=== PATIENT | male | born 1985 | race Caucasian/White ===

== ENCOUNTER 2017-04-23 10:45 | Emergency (ER) | payer SELFPAY ==
--- NOTE | 2017-04-23 10:55 | ED Physician Documentation ---
General Adult - HISTORIAN Historian: patient - HPI Stated Complaint: pain on top of left foot after dropping object on foot yesterday Chief Complaint: Lower Extremity Problem Onset: days ago (1) Timing: still present Severity: moderate Further Comments: yes (States yesterday at work he did drop a heavy item on his left foot and he has had increasing pain and swelling since. He has tried OTC meds with mild relief. He is able to bear weight on the foot but states it is painful .) Last known Well Code/Unknown Code: Unknown - ROS CONST: no problems MS/SKIN/LYMPH: none - PAST HX Past History: none Other History: none Surgeries/Procedures: other (right hand ) Immunizations: UTD Allergies/Adverse Reactions: Allergies Allergy/AdvReac Type Severity Reaction Status Date / Time No Known Allergies Allergy Verified 04/23/17 10:57 Home Medications: Ambulatory Orders Medication Instructions Recorded NK [NK] 04/23/17 - SOCIAL HX Smoking History: cigarettes Alcohol Use: rarely Drug Use: none - FAMILY HX Family History: No - VITAL SIGNS Vital Signs: Vital Signs Temp Pulse Resp BP Pulse Ox 151/87 04/23/17 10:46 - REVIEWED ASSESSMENTS Nursing Assessment Reviewed: Yes Vitals Reviewed: Yes ED Results Lab/Radiology - Radiology Radiology Impressions: Left foot, 3 views. History: LEFT FOOT, PAIN IN LEFT FOOT AFTER DROPPING CONCRETE BLOCK ON FOOT YESTERDAY Findings: The osseous structures are intact without acute fracture. The joint space and alignment are normal. There is no soft tissue swelling. Plantar and dorsal calcaneal enthesophytes present. Impression: 1. No acute osseous abnormality. Electronically signed on Apr 23, 2017 11:22:29 AM CDT by: Carlos Skinner General Adult Physical Exam - PHYSICAL EXAM GENERAL APPEARANCE: no distress EENT: eye inspection normal RESPIRATORY: no resp distress, chest non-tender, wheezes CVS: reg rate & rhythm, heart sounds normal, equal pulses, no murmur SKIN: warm/dry EXTREMITIES: other (left foot with swelling . Tenderness to touch (top of foot) pulses + cap refill + sensation +) NEURO: oriented X3 Discharge Clincal Impression: Foot pain, left Referrals: Anjelica Church FNP [Primary Care Provider] - 2 Days Additional Instructions: 1. Ice to area 2. Elevate area 3. EDUARDO wrap 4. Tylenol or Ibuprofen for pain as needed 5. follow up with PCP or ER for any change in concerns Condition: Stable Disposition: 01 HOME, SELF-CARE Decision to Admit: NO Date of Decison to Admit: 04/23/17 Decision Time: 11:24
[2017-04-23 11:33] VITALS: BP 123/74
--- NOTE | 2017-04-23 18:18 | Diagnostic Imaging Report ---
REA KEATING [facility] [id number] [facility] [address] [id number] Report Submission Date: Apr 23, 2017 11:22:29 AM CDT Patient Study Name: ANABELL DEVI Date: Apr 23, 2017 11:02:53 AM CDT Modality Type: DX Gender: M Description: LOWER EXTREMITY : 85 Institution: [facility] Physician: REA KEATING Left foot, 3 views. History: LEFT FOOT, PAIN IN LEFT FOOT AFTER DROPPING CONCRETE BLOCK ON FOOT YESTERDAY Findings: The osseous structures are intact without acute fracture. The joint space and alignment are normal. There is no soft tissue swelling. Plantar and dorsal calcaneal enthesophytes present. Impression: 1. No acute osseous abnormality. Electronically signed on Apr 23, 2017 11:22:29 AM CDT by: Carlos ARRIAGA
== END 2017-04-23 11:30 | disposition home or self-care (01) ==
LOC: ED 10:45
DX: M79.672 Pain in left foot (principal)
CPT/HCPCS: 73630; 99282